=== PATIENT | male | born 1940 ===

== ENCOUNTER → 2017-10-05 06:14 | Outpatient (CLI) | payer OTHER ==
[~2017-10-05 06:14] MED LIST: NABUMETONE500 MG PO; PERCOCET 5/3251 TAB PO
== END | disposition home or self-care (01) ==
LOC: LAB 06:14
DX: I10 Essential (primary) hypertension (principal); R73.01 Impaired fasting glucose; I25.110 Atherosclerotic heart disease of native coronary artery with unstable angina pectoris; N40.0 Benign prostatic hyperplasia without lower urinary tract symptoms; R63.4 Abnormal weight loss; D50.8 Other iron deficiency anemias; D51.8 Other vitamin B12 deficiency anemias; D55.0 Anemia due to glucose-6-phosphate dehydrogenase [G6PD] deficiency; D51.0 Vitamin B12 deficiency anemia due to intrinsic factor deficiency; D51.1 Vitamin B12 deficiency anemia due to selective vitamin B12 malabsorption with proteinuria; E03.8 Other specified hypothyroidism; R97.0 Elevated carcinoembryonic antigen [CEA]; R97.8 Other abnormal tumor markers; E06.3 Autoimmune thyroiditis

== ENCOUNTER 2017-12-07 06:39 | Outpatient (CLI) | payer OTHER | END 2017-12-07 06:50 | disposition home or self-care (01) | LOC: LAB 06:39 | DX: G56.21 Lesion of ulnar nerve, right upper limb (principal); I10 Essential (primary) hypertension; I25.10 Atherosclerotic heart disease of native coronary artery without angina pectoris; Z01.812 Encounter for preprocedural laboratory examination; D55.0 Anemia due to glucose-6-phosphate dehydrogenase [G6PD] deficiency; D72.1 Eosinophilia; D51.1 Vitamin B12 deficiency anemia due to selective vitamin B12 malabsorption with proteinuria; D51.3 Other dietary vitamin B12 deficiency anemia; R63.4 Abnormal weight loss; R73.01 Impaired fasting glucose; I25.110 Atherosclerotic heart disease of native coronary artery with unstable angina pectoris; N40.0 Benign prostatic hyperplasia without lower urinary tract symptoms; D69.8 Other specified hemorrhagic conditions ==

== ENCOUNTER 2018-01-11 06:10 | Outpatient (CLI) | payer OTHER | END 2018-01-11 09:37 | disposition home or self-care (01) | LOC: LAB 06:10 | DX: I11.9 Hypertensive heart disease without heart failure (principal); I73.89 Other specified peripheral vascular diseases; I70.0 Atherosclerosis of aorta; I80.00 Phlebitis and thrombophlebitis of superficial vessels of unspecified lower extremity; E78.2 Mixed hyperlipidemia; E11.65 Type 2 diabetes mellitus with hyperglycemia; E04.2 Nontoxic multinodular goiter; J30.2 Other seasonal allergic rhinitis; J32.8 Other chronic sinusitis; H35.89 Other specified retinal disorders; H26.8 Other specified cataract; K57.30 Diverticulosis of large intestine without perforation or abscess without bleeding; K40.20 Bilateral inguinal hernia, without obstruction or gangrene, not specified as recurrent; R10.11 Right upper quadrant pain; Q40.1 Congenital hiatus hernia; K29.00 Acute gastritis without bleeding; R74.8 Abnormal levels of other serum enzymes; N40.0 Benign prostatic hyperplasia without lower urinary tract symptoms; D72.1 Eosinophilia; M25.511 Pain in right shoulder; H81.13 Benign paroxysmal vertigo, bilateral; J44.9 Chronic obstructive pulmonary disease, unspecified; J39.8 Other specified diseases of upper respiratory tract; J98.11 Atelectasis; Z68.25 Body mass index [BMI] 25.0-25.9, adult; R63.4 Abnormal weight loss; Z87.11 Personal history of peptic ulcer disease; K75.89 Other specified inflammatory liver diseases; M12.519 Traumatic arthropathy, unspecified shoulder; K76.89 Other specified diseases of liver; I25.89 Other forms of chronic ischemic heart disease; K59.09 Other constipation; M48.061 Spinal stenosis, lumbar region without neurogenic claudication ==

== ENCOUNTER → 2020-07-17 06:25 | Outpatient (CLI) | payer OTHER | END | disposition home or self-care (01) | LOC: LAB 06:25 | PROVIDERS: ATTEND Internal Medicine Hematology & Oncology | DX: D50.8 Other iron deficiency anemias (principal); I10 Essential (primary) hypertension; D51.8 Other vitamin B12 deficiency anemias; R97.0 Elevated carcinoembryonic antigen [CEA]; R97.8 Other abnormal tumor markers; D55.0 Anemia due to glucose-6-phosphate dehydrogenase [G6PD] deficiency; R63.4 Abnormal weight loss; D51.1 Vitamin B12 deficiency anemia due to selective vitamin B12 malabsorption with proteinuria; D51.3 Other dietary vitamin B12 deficiency anemia; R73.01 Impaired fasting glucose; I25.110 Atherosclerotic heart disease of native coronary artery with unstable angina pectoris; N40.0 Benign prostatic hyperplasia without lower urinary tract symptoms ==

== ENCOUNTER → 2020-08-07 | Outpatient (CLI) | payer OTHER | END | disposition home or self-care (01) | LOC: TOM 08-05 07:15 | PROVIDERS: ATTEND Internal Medicine Hematology & Oncology | DX: K57.90 Diverticulosis of intestine, part unspecified, without perforation or abscess without bleeding (principal); K40.20 Bilateral inguinal hernia, without obstruction or gangrene, not specified as recurrent; D55.0 Anemia due to glucose-6-phosphate dehydrogenase [G6PD] deficiency; D72.19 Other eosinophilia; R97.0 Elevated carcinoembryonic antigen [CEA]; R63.4 Abnormal weight loss; D51.1 Vitamin B12 deficiency anemia due to selective vitamin B12 malabsorption with proteinuria; D51.3 Other dietary vitamin B12 deficiency anemia; I10 Essential (primary) hypertension; R73.01 Impaired fasting glucose; I25.110 Atherosclerotic heart disease of native coronary artery with unstable angina pectoris; N40.0 Benign prostatic hyperplasia without lower urinary tract symptoms; R10.30 Lower abdominal pain, unspecified | CPT/HCPCS: 74177; Q9965 ==

== ENCOUNTER 2021-06-18 07:33 | Outpatient (CLI) | payer OTHER | END 2021-06-18 07:49 | disposition home or self-care (01) | LOC: SONOGRAMA 07:33 | PROVIDERS: ATTEND Pathology Anatomic Pathology & Clinical Pathology | DX: D34 Benign neoplasm of thyroid gland (principal); E04.8 Other specified nontoxic goiter; E04.2 Nontoxic multinodular goiter ==